=== PATIENT | male | born 1955 | race Caucasian/White ===

== ENCOUNTER 2017-12-26 13:23 | Emergency (ER) | payer MEDICARE, OTHER ==
[~2017-12-26] VITALS: Ht 182.9 cm; Wt 83.9 kg
[2017-12-26] MEDS ORDERED: TRAZODONE HCL100 MG PO (13:50)
[2017-12-26] MEDS ORDERED: GABAPENTIN300 MG PO (13:50)
[2017-12-26] MEDS ORDERED: PERCOCET 5-3251 EACH PO (13:51)
[2017-12-26] MEDS ORDERED: MILK THISTLE140 M1 PO (13:51)
[2017-12-26] MEDS ORDERED: ROBAXIN-750750 MG PO (14:35)
[2017-12-26] MEDS ORDERED: MEDROL4 M1 PO (14:35)
== END 2017-12-26 14:45 | disposition home or self-care (01) ==
LOC: ED 13:23
DX: M54.5 Low back pain (principal); G89.29 Other chronic pain; Z87.891 Personal history of nicotine dependence; Z88.5 Allergy status to narcotic agent; Z79.899 Other long term (current) drug therapy
CPT/HCPCS: 99283